=== PATIENT | female | born 1995 | race Caucasian/White ===

== ENCOUNTER 2017-05-09 16:43 | Emergency (ER) | payer OTHER ==
[~2017-05-09] VITALS: Ht 165.1 cm; Wt 72.6 kg
[2017-05-09] MEDS ORDERED: ALBUTEROL2.5 MG/0.1 INH (17:08)
[2017-05-09] MEDS ORDERED: FLOVENT HFA 4444 MCG INH (17:08)
[2017-05-09] MEDS ORDERED: SINGULAIR 10 MG10 M1 PO (17:08)
[2017-05-09] MEDS ORDERED: NAPROSYN500 MG PO (17:28)
[2017-05-09] MEDS ORDERED: NORFLEX100 MG PO (17:28)
[2017-05-09 18:18] VITALS: BP 118/77
== END 2017-05-09 18:20 | disposition home or self-care (01) ==
LOC: ER 16:43
DX: S00.83XA Contusion of other part of head, initial encounter (principal); F07.81 Postconcussional syndrome; G44.209 Tension-type headache, unspecified, not intractable; J45.909 Unspecified asthma, uncomplicated; F10.99 Alcohol use, unspecified with unspecified alcohol-induced disorder; W22.03XA Walked into furniture, initial encounter; Y93.89 Activity, other specified; Y92.89 Other specified places as the place of occurrence of the external cause; Y99.8 Other external cause status